=== PATIENT | female | born 1990 | race Caucasian/White ===

== ENCOUNTER 2017-08-01 10:25 | Observation (INO) | payer OTHER ==
[~2017-08-01] VITALS: Ht 160 cm; Wt 83.0 kg
[2017-08-01 10:43] VITALS: BP 127/69
[2017-08-01] MEDS ORDERED: PREN1TAB80 PO (11:19)
[2017-08-01 11:55] LABS: BASOPHILS % (AUTO) 0.2 % (0.0-2.0); EOSINOPHILS % (AUTO) 2.6 % (1.0-6.0); HEMATOCRIT 35.9 % (36-46); HEMOGLOBIN 12.4 g/dL (12.0-16.0); LYMPHOCYTES % (AUTO) 15.4 % (22.0-44.0); MEAN CORPUSCULAR HEMOGLOBIN 30.9 pg (26.0-34.0); MEAN CORPUSCULAR HGB CONC 34.7 G/dL (31.0-37.0); MEAN CORPUSCULAR VOLUME 89 fL (80-100); MONOCYTES # (AUTO) 1.3 K/uL (0.1-1.0); NEUTROPHILS # (AUTO) 9.1 K/uL (1.8-7.7); NEUTROPHILS % (AUTO) 71.8 % (40.0-70.0); PLATELET COUNT (AUTO)-OB 293 K/uL (150-450); RED BLOOD CELL COUNT(AUTO) 4.02 MIL/uL (4.00-5.20); RED CELL DISTRIBUTION WIDTH 13.6 % (11.5-14.5)
[2017-08-01 12:10] LABS: ANION GAP 6 mmol/L (8-16); CALCIUM, TOTAL 8.8 mg/dL (8.8-10.5); CARBON DIOXIDE 29 mmol/L (22-29); CHLORIDE 102 mmol/L (98-107); CREATININE 0.54 mg/dL (0.60-1.30); GLOMERULAR FILTR. RATE CALC > 60 mL/min (>60); GLUCOSE,RANDOM 89 mg/dL (70-110); POTASSIUM 3.9 mmol/L (3.5-5.1); SODIUM SERUM 137 mmol/L (136-145); UREA NITROGEN, BLOOD 7 mg/dL (7-18)
[2017-08-01 12:16] LABS: ALANINE AMINOTRANSFERASE 35 U/L (12-78); ALBUMIN 2.3 g/dL (3.4-5.0); ALKALINE PHOSPHATASE 157 U/L (46-116); ASPARTATE AMINOTRANSFERASE 21 U/L (15-37); BILIRUBIN,TOTAL 0.2 mg/dL (0.1-1.0); TOTAL PROTEIN, SERUM 6.4 g/dL (6.4-8.2); URIC ACID 2.6 mg/dL (2.6-7.2)
[2017-08-02 17:31] LABS: COLLECTION TIME,URINE 24 HR; TPROTEIN URINE, 24HRS COLL 165 mg/24Hr (0-165)
[2017-08-02 17:33] LABS: TPROTEIN TIMED,URINE < 6 mg/dL
== END 2017-08-01 14:30 | disposition home or self-care (01) ==
LOC: 4S 10:25
PROVIDERS: ADMIT Obstetrics & Gynecology; ATTEND Obstetrics & Gynecology
DX: O26.893 Other specified pregnancy related conditions, third trimester (principal); R03.0 Elevated blood-pressure reading, without diagnosis of hypertension; R10.9 Unspecified abdominal pain; Z3A.35 35 weeks gestation of pregnancy
CPT/HCPCS: 36415; 59025; 80053; 81050; 84156; 84550; 85025; G0378

== ENCOUNTER 2017-08-25 08:32 | Observation (INO) | payer OTHER ==
[~2017-08-25 08:32] MED LIST: PREN1TAB80 PO
[2017-08-25 09:12] VITALS: BP 118/71
[2017-08-25] MEDS ORDERED: PREN1TAB89 PO (09:14)
== END 2017-08-25 13:15 | disposition home or self-care (01) ==
LOC: 4S 08:32
PROVIDERS: ADMIT Obstetrics & Gynecology; ATTEND Obstetrics & Gynecology
DX: O62.9 Abnormality of forces of labor, unspecified (principal); O26.893 Other specified pregnancy related conditions, third trimester; R10.30 Lower abdominal pain, unspecified; Z3A.39 39 weeks gestation of pregnancy
CPT/HCPCS: 59025; 76811; G0378

== ENCOUNTER 2017-09-02 18:53 | Inpatient (IN) | payer OTHER ==
[~2017-09-02] VITALS: Ht 160 cm; Wt 86.2 kg
[~2017-09-02 18:53] MED LIST changes: +PREN1TAB89 PO
[2017-09-02 19:15] VITALS: BP 110/64
[2017-09-02] MEDS ORDERED: RINGERS SOLUTION,LACTATED 1,000 ML IV PRN (19:57)
[2017-09-02] MEDS ORDERED: FentaNYL CITRATE-PF 100 MCG/2 ML VIAL IVP PRN (20:00)
[2017-09-02] MEDS ORDERED: CITRIC ACID/SODIUM CITRATE 30 ML SOLUTION UDCUP PO PRN (20:00)
[2017-09-02] MEDS ORDERED: OXYGEN THERAPY IH SCH (20:00)
[2017-09-02] MEDS ORDERED: METOCLOPRAMIDE HCL 5 MG/ML 2 ML VIAL IVP PRN (20:00)
[2017-09-02] MEDS ORDERED: OXYTOCIN 30 UNITS/LACT RINGERS 500 ML IV ONE (20:01)
[2017-09-02 20:17] LABS: BASOPHILS % (AUTO) 0.4 % (0.0-2.0); EOSINOPHILS % (AUTO) 1.2 % (1.0-6.0); HEMATOCRIT 34.9 % (36-46); HEMOGLOBIN 12.1 g/dL (12.0-16.0); LYMPHOCYTES # (AUTO) 2.1 K/uL (1.0-4.8); LYMPHOCYTES % (AUTO) 17.2 % (22.0-44.0); MEAN CORPUSCULAR HEMOGLOBIN 30.6 pg (26.0-34.0); MEAN CORPUSCULAR HGB CONC 34.8 G/dL (31.0-37.0); MEAN CORPUSCULAR VOLUME 88 fL (80-100); MONOCYTES # (AUTO) 1.4 K/uL (0.1-1.0); MONOCYTES % (AUTO) 11.6 % (2.0-9.0); NEUTROPHILS # (AUTO) 8.5 K/uL (1.8-7.7); NEUTROPHILS % (AUTO) 69.6 % (40.0-70.0); PLATELET COUNT (AUTO)-OB 284 K/uL (150-450); RED BLOOD CELL COUNT(AUTO) 3.96 MIL/uL (4.00-5.20); RED CELL DISTRIBUTION WIDTH 14.3 % (11.5-14.5)
[2017-09-02] MEDS: RINGERS SOLUTION,LACTATED 1,000 ML IV SCH (20:38)
[2017-09-02] MEDS ORDERED: DINOPROSTONE 10 MG VAGINAL SUPPOSITORY VG ONE (20:45)
[2017-09-03] MEDS: RINGERS SOLUTION,LACTATED 1,000 ML IV SCH ×3 (01:44→17:56)
[2017-09-03] MEDS ORDERED: -PHARMACY NOTE- MISC ONE (08:45)
[2017-09-03] MEDS ORDERED: MISOPROSTOL 25 MCG TABLET VG ONE (09:30)
[2017-09-03] MEDS ORDERED: OXYTOCIN 30 UNITS/LACT RINGERS 500 ML IV PRN (12:46)
[2017-09-03] MEDS ORDERED: ROPIVACAINE HCL/PF 0.2% 100 ML ED ONE (17:04)
[2017-09-03] MEDS ORDERED: LIDOCAINE HCL/PF 2% 5 ML VIAL ONE ×2 (17:04→19:13)
[2017-09-03] MEDS ORDERED: FentaNYL/BUPIV 0.125%/NS/PF 200 ML ED PRN (17:34)
[2017-09-03] MEDS ORDERED: NALBUPHINE HCL 10 MG/ML VIAL IVP PRN ×4 (17:45→20:00)
[2017-09-03] MEDS ORDERED: DiphenhydrAMINE HCL 50 MG/ML VIAL IVP PRN ×3 (17:45→20:00)
[2017-09-03] MEDS ORDERED: ONDANSETRON HCL 4 MG/2 ML VIAL IVP PRN ×3 (17:45→20:00)
[2017-09-03] MEDS ORDERED: FentaNYL CITRATE-PF 100 MCG/2 ML VIAL ONE (19:13)
[2017-09-03] MEDS ORDERED: MORPHINE SULFATE/PF 0.5 MG/ML 10 ML AMP ONE (19:13)
[2017-09-03] MEDS ORDERED: ACETAMINOPHEN 1000 MG/ISO-OSM 100 ML IV ONE (19:14)
[2017-09-03] MEDS ORDERED: DiphenhydrAMINE HCL 50 MG/ML VIAL IM PRN (20:00)
[2017-09-03] MEDS ORDERED: OXYGEN THERAPY IH SCH ×4 (20:00)
[2017-09-03] MEDS ORDERED: MEPERIDINE-PF 25 MG/ML SYRINGE IVP PRN (20:00)
[2017-09-03] MEDS ORDERED: NALOXONE HCL 0.4 MG/ML VIAL IVP PRN (20:00)
[2017-09-03] MEDS ORDERED: DEXAMETHASONE SOD PHOS 4 MG/ML VIAL IVP PRN (20:00)
[2017-09-03] MEDS ORDERED: FentaNYL CITRATE-PF 100 MCG/2 ML VIAL IVP PRN ×4 (20:00)
[2017-09-03] MEDS ORDERED: MORPHINE SULFATE 2 MG/ML SYRINGE IVP PRN ×2 (20:00)
[2017-09-03] MEDS ORDERED: MORPHINE SULFATE 10 MG/ML SYRINGE IVP PRN ×2 (20:00)
[2017-09-03] MEDS ORDERED: GUM MASTIC/STORAX/MSAL/ALCOHOL LIQUID 0.67 ML VIAL TP ONE (20:02)
[2017-09-03] MEDS ORDERED: LANOLIN 7 GM OINTMENT TP PRN (20:30)
[2017-09-03] MEDS ORDERED: OxyCODONE HCL/ACETAMINOPHEN 5-325 MG TABLET PO PRN ×2 (20:30)
[2017-09-03] MEDS ORDERED: MAGNESIUM HYDROXIDE SUSPENSION 30 ML UDCUP PO SCH (21:00)
[2017-09-03] MEDS ORDERED: SENNA/DOCUSATE SODIUM 187-50 MG TABLET PO SCH (21:00)
[2017-09-04] MEDS: ACETAMINOPHEN 1000 MG/ISO-OSM 100 ML IV SCH ×2 (04:16→11:52)
[2017-09-04] MEDS: RINGERS SOLUTION,LACTATED 1,000 ML IV SCH ×2 (04:16→06:34)
[2017-09-04] MEDS ORDERED: OXYTOCIN 10 UNITS/ML VIAL IM ONE (05:41)
[2017-09-04] MEDS ORDERED: 0.9% SODIUM CHLORIDE 10 ML VIAL IVP ONE (05:41)
[2017-09-04] MEDS ORDERED: LIDOCAINE HCL/PF 2% 5 ML VIAL IM ONE (05:41)
[2017-09-04 05:54] LABS: BASOPHILS % (AUTO) 0.2 % (0.0-2.0); EOSINOPHILS % (AUTO) 0.1 % (1.0-6.0); HEMATOCRIT 32.7 % (36-46); HEMOGLOBIN 11.7 g/dL (12.0-16.0); LYMPHOCYTES # (AUTO) 1.6 K/uL (1.0-4.8); LYMPHOCYTES % (AUTO) 9.2 % (22.0-44.0); MEAN CORPUSCULAR HEMOGLOBIN 31.4 pg (26.0-34.0); MEAN CORPUSCULAR HGB CONC 35.7 G/dL (31.0-37.0); MEAN CORPUSCULAR VOLUME 88 fL (80-100); MONOCYTES # (AUTO) 1.4 K/uL (0.1-1.0); MONOCYTES % (AUTO) 7.7 % (2.0-9.0); NEUTROPHILS # (AUTO) 14.9 K/uL (1.8-7.7); NEUTROPHILS % (AUTO) 82.8 % (40.0-70.0); PLATELET COUNT (AUTO)-OB 254 K/uL (150-450); RED BLOOD CELL COUNT(AUTO) 3.72 MIL/uL (4.00-5.20); RED CELL DISTRIBUTION WIDTH 14.1 % (11.5-14.5)
[2017-09-04] MEDS: SENNA/DOCUSATE SODIUM 187-50 MG TABLET PO SCH ×2 (09:10→21:21)
[2017-09-04] MEDS: MAGNESIUM HYDROXIDE SUSPENSION 30 ML UDCUP PO SCH ×2 (09:10→21:21)
[2017-09-04] MEDS: IBUPROFEN 600 MG TABLET PO PRN (21:21)
[2017-09-05] MEDS: IBUPROFEN 600 MG TABLET PO PRN ×2 (06:27→19:59)
[2017-09-05] MEDS: MAGNESIUM HYDROXIDE SUSPENSION 30 ML UDCUP PO SCH (08:55)
[2017-09-05] MEDS: SENNA/DOCUSATE SODIUM 187-50 MG TABLET PO SCH (10:46)
[2017-09-05] MEDS ORDERED: DSS100 PO (17:28)
[2017-09-05] MEDS ORDERED: IBUP-2070 PO (17:28)
[2017-09-05] MEDS ORDERED: PERCT PO (17:30)
== END 2017-09-05 21:15 | disposition home or self-care (01) | DRG 765 ==
LOC: 4S 18:53 → OBSVTOIN 18:53 → 4S 09-03 22:25
PROVIDERS: ADMIT Obstetrics & Gynecology; ATTEND Obstetrics & Gynecology
PROC: 4A0HXCZ Measurement of Products of Conception, Cardiac Rate, External Approach (ICD-10-PCS; 2017-09-02)
PROC: 10D00Z1 Extraction of Products of Conception, Low, Open Approach (ICD-10-PCS; principal; 2017-09-03)
PROC: 3E0E7GC Introduction of Other Therapeutic Substance into Products of Conception, Via Natural or Artificial Opening (ICD-10-PCS; 2017-09-03)
PROC: 3E033VJ Introduction of Other Hormone into Peripheral Vein, Percutaneous Approach (ICD-10-PCS; 2017-09-03)
DX: O76 Abnormality in fetal heart rate and rhythm complicating labor and delivery (principal); O41.03X0 Oligohydramnios, third trimester, not applicable or unspecified; J45.909 Unspecified asthma, uncomplicated; O69.1XX0 Labor and delivery complicated by cord around neck, with compression, not applicable or unspecified; O99.52 Diseases of the respiratory system complicating childbirth; Z3A.40 40 weeks gestation of pregnancy; Z37.0 Single live birth; Z79.899 Other long term (current) drug therapy
CPT/HCPCS: J0131; J0690; J2274; J2590; J2765; J2795; J3010; J3490; J7120